=== PATIENT | female | born 1980 | race Caucasian/White ===

== ENCOUNTER 2016-12-12 10:13 | Emergency (ER) | payer SELFPAY ==
[~2016-12-12] VITALS: Ht 163.8 cm; Wt 67.0 kg
[2016-12-12 10:16] VITALS: BP 94/71; PULSE 85; RESP 15; TEMP 98.2; O2SAT 98
[2016-12-12 10:29] VITALS: BP 108/69; PULSE 90; RESP 20; TEMP 97.5; O2SAT 98
[2016-12-12] MEDS ORDERED: SODIUM CHLOR 0.9% 1000 ML INJ 1,000 ML IV SCH (10:35)
[2016-12-12] MEDS ORDERED: POLYETHYLENE GLYCOL 17 GM PKG PO ONE (10:45)
[2016-12-12] MEDS ORDERED: ONDANSETRON HCL 4 MG/2 ML VIAL IVP ONE (10:45)
[2016-12-12] MEDS ORDERED: SODIUM CHLORIDE 0.9% FLUSH 5 ML FLUSH IVF PRN (10:45)
[2016-12-12] MEDS ORDERED: GABA100C4 PO (11:49)
[2016-12-12] MEDS ORDERED: VIST50CA PO (11:49)
[2016-12-12] MEDS ORDERED: LISI40TA PO (11:49)
[2016-12-12] MEDS ORDERED: TRAZ100T4 PO (11:49)
[2016-12-12] MEDS ORDERED: STOO100C (11:49)
[2016-12-12] MEDS ORDERED: PROZ40CA PO (11:49)
--- NOTE | 2016-12-12 11:49 | PD ---
HPI Chief Complaint: GI Complaint Time Seen by Provider: 10:30 Travel History International Travel<30 days: No Contact w/Intl Traveler<30days: No Traveled to known affect area: No History of Present Illness HPI Patient is a 36-year-old female who presents to emergency room with complaints of abdominal pain with nausea, vomiting and constipation. Patient reports that she has a remote history of irritable bowel disease, reports that for the past 8 days, she has not been able to have a bowel movement. Patient reports that she has been straining, reports that she has tried taking Dulcolax without any relief of symptoms. Patient reports increased pain throughout her abdomen secondary to her constipation. Patient with no fevers or chills, patient with no other complaints. PFSH Past Medical History Gastrointestinal Disorders: Yes (pancreatitis) ?: Unknown Past Surgical History Surgical History: No Previous Surgery Family History Family History: Negative Social History Alcohol Use: Yes Tobacco Use: No Substance Use: No Allergies-Medications (Allergen,Severity, Reaction): Coded Allergies: Biaxin (Verified Allergy, Mild, RASH, 12/12/16) Ceftin (Verified Allergy, Mild, RASH, 12/12/16) Reported Meds & Prescriptions Reported Meds & Active Scripts Active Miralax Powder (Polyethylene Glycol 3350 Powder) 17 Gm Powd 17 Gm PO DAILY Mix and dissolve one measuring cap-ful (17 grams) in water or juice. Reported Trazodone (Trazodone HCl) 100 Mg Tab 100 Mg PO HS Stool Softener (Docusate Sodium) 100 Mg Cap Lisinopril 40 Mg Tab 0 PO DAILY Prozac (Fluoxetine HCl) 40 Mg Cap 40 Mg PO DAILY Vistaril (Hydroxyzine Pamoate) 50 Mg Cap 100 Mg PO TID PRN Gabapentin 100 Mg Cap 100 Mg PO TID Review of Systems General / Constitutional: No: Fever Eyes: No: Visual changes HENT: No: Headaches Cardiovascular: No: Chest Pain or Discomfort Respiratory: No: Shortness of Breath Gastrointestinal: Positive: Nausea, Abdominal Pain, Constipation Genitourinary: No: Dysuria Musculoskeletal: No: Pain Skin: No Rash Neurologic: No: Weakness Psychiatric: No: Depression Endocrine: No: Polydipsia Hematologic/Lymphatic: No: Easy Bruising Physical Exam Narrative GENERAL: No acute distress, nontoxic SKIN: Warm and dry. HEAD: Atraumatic. Normocephalic. EYES: PNo injection or drainage. ENT: No nasal bleeding or discharge. Mucous membranes pink and moist. NECK: Trachea midline. No JVD. CARDIOVASCULAR: Regular rate and rhythm. No murmur appreciated. RESPIRATORY: No accessory muscle use. Clear to auscultation. Breath sounds equal bilaterally. GASTROINTESTINAL: Abdomen soft, diffusely tender with no rebound or guarding on exam.. MUSCULOSKELETAL: No obvious deformities. No clubbing. No cyanosis. No edema. NEUROLOGICAL: Awake and alert. No obvious cranial nerve deficits. Motor grossly within normal limits. Normal speech. PSYCHIATRIC: Appropriate mood and affect; insight and judgment normal. Data Data Last Documented VS Vital Signs Date Time Temp Pulse Resp B/P Pulse Ox O2 Delivery O2 Flow Rate FiO2 12/12/16 14:57 64 18 108/75 98 Room Air 12/12/16 10:29 97.5 Orders Complete Blood Count With Diff (12/12/16 10:35) Comprehensive Metabolic Panel (12/12/16 10:35) Lipase (12/12/16 10:35) Prothrombin Time / Inr (Pt) (12/12/16 10:35) Act Partial Throm Time (Ptt) (12/12/16 10:35) Urinalysis - C+S If Indicated (12/12/16 10:35) Ct Abd/Pel W/O Iv Contrast (12/12/16 10:35) Iv Access Insert/Monitor (12/12/16 10:35) Ondansetron Inj (Zofran Inj) (12/12/16 10:45) Sodium Chlor 0.9% 1000 Ml Inj (Ns 1000 M (12/12/16 10:35) Sodium Chloride 0.9% Flush (Ns Flush) (12/12/16 10:45) Ed Urine Pregnancytest Poc (12/12/16 10:35) Polyethylene Glycol (Miralax) (12/12/16 10:45) Labs Laboratory Tests Test 12/12/16 12/12/16 11:05 11:20 Urine Color LIGHT-YELLOW Urine Turbidity HAZY Urine pH 5.0 Urine Specific [place] 1.014 Urine Protein NEG mg/dL Urine Glucose (UA) NEG mg/dL Urine Ketones NEG mg/dL Urine Occult Blood NEG Urine Nitrite NEG Urine Bilirubin NEG Urine Urobilinogen LESS THAN 2.0 MG/DL Urine Leukocyte Esterase SMALL Urine RBC 1 /hpf Urine WBC 1 /hpf Urine Squamous Epithelial 4 /hpf Cells Urine Calcium Oxalate Crystals OCC /hpf Urine Bacteria OCC /hpf Microscopic Urinalysis Comment CULT NOT INDICATED White Blood Count 7.8 TH/MM3 Red Blood Count 4.13 MIL/MM3 Hemoglobin 12.3 GM/DL Hematocrit 35.1 % Mean Corpuscular Volume 84.9 FL Mean Corpuscular Hemoglobin 29.9 PG Mean Corpuscular Hemoglobin 35.2 % Concent Red Cell Distribution Width 12.6 % Platelet Count 298 TH/MM3 Mean Platelet Volume 7.4 FL Neutrophils (%) (Auto) 48.7 % Lymphocytes (%) (Auto) 42.1 % Monocytes (%) (Auto) 6.1 % Eosinophils (%) (Auto) 2.4 % Basophils (%) (Auto) 0.7 % Neutrophils # (Auto) 3.8 TH/MM3 Lymphocytes # (Auto) 3.3 TH/MM3 Monocytes # (Auto) 0.5 TH/MM3 Eosinophils # (Auto) 0.2 TH/MM3 Basophils # (Auto) 0.1 TH/MM3 CBC Comment DIFF FINAL Differential Comment Prothrombin Time 10.1 SEC Prothromb Time International 0.9 RATIO Ratio Activated Partial 21.0 SEC Thromboplast Time Sodium Level 139 MEQ/L Potassium Level 4.2 MEQ/L Chloride Level 104 MEQ/L Carbon Dioxide Level 25.1 MEQ/L Anion Gap 10 MEQ/L Blood Urea Nitrogen 19 MG/DL Creatinine 0.70 MG/DL Estimat Glomerular Filtration 95 ML/MIN Rate Random Glucose 90 MG/DL Calcium Level 9.2 MG/DL Total Bilirubin 0.3 MG/DL Aspartate Amino Transf 29 U/L (AST/SGOT) Alanine Aminotransferase 35 U/L (ALT/SGPT) Alkaline Phosphatase 60 U/L Total Protein 7.5 GM/DL Albumin 4.2 GM/DL Lipase 77 U/L [facility] Medical Decision Making Medical Screen Exam Complete: Yes Emergency Medical Condition: Yes Interpretation(s) Vital Signs Date Time Temp Pulse Resp B/P Pulse Ox O2 Delivery O2 Flow Rate FiO2 12/12/16 10:29 97.5 90 20 108/69 98 12/12/16 10:16 98.2 85 15 94/71 98 Differential Diagnosis Small bowel obstruction, constipation, electrolyte abnormality, UTI Narrative Course Patient is a 36-year-old female who presents to emergency room with complaints of abdominal pain with nausea vomiting and constipation. Patient reports that she has been very constipated and has not been able to have a bowel movement for the past 8 days. Patient reports that she feels full in her abdomen and "everything hurts her" because she feels full of stool. Patient discharged taking [id number] ducal ex without any resolution of symptoms. Patient with no fevers or chills at this time. Patient reports that she has history of chronic pancreatitis secondary to alcohol abuse, patient denies pain to her upper abdomen today. An IV line was established patient, patient was given IV fluids as well as antinausea medications. CT of abdomen and pelvis ordered for further evaluation symptoms. All labs and all studies reviewed patient in detail. Patient reports feeling much better in the emergency room. Patient will follow-up with primary care doctor as well as GI. sings and symptoms of when to return to the emergency room was reviewed patient in detail. Diagnosis Primary Impression: Abdominal pain Qualified Code: R10.84 - Generalized abdominal pain Additional Impression: Constipation Qualified Code: K59.00 - Constipation, unspecified constipation type Patient Instructions: General Instructions Additional Instructions: Please follow-up with your primary care doctor Please follow-up with your GI doctor Return to ER as needed Return to ER if symptoms progress or worsen Med/Other Pt SpecificInfo: Prescription(s) given Scripts Polyethylene Glycol 3350 Powder (Miralax Powder)17 Gm Powd17 Gm PO DAILY #1 BOTTLE Ref 0 Mix and dissolve one measuring cap-ful (17 grams) in water or juice. Prov:Emily Menchaca DO 12/12/16 Disposition: 01 DISCHARGE HOME Condition: Stable Emily Mecnhaca DO Dec 12, 2016 11:49
[2016-12-12 12:02] LABS: BACTERIA, URINE OCC /hpf; BLOOD, URINE NEG (NEG); CALCIUM OXALATE CRYSTALS,URINE OCC /hpf; GLUCOSE,URINE NEG (NEG); KETONE, URINE NEG (NEG); NITRITE,URINE NEG (NEG); SQUAMOUS EPITHELIAL CELL URINE 4 /hpf (0-5); URINE COLOR LIGHT-YELLOW (YELLW/STRAW)
[2016-12-12 12:04] LABS: COMMENT (UR) CULT NOT INDICATED; CULTURE IF INDICATED CULT NOT INDICATED
[2016-12-12 12:10] LABS: AUTOMATED NEUTROPHIL # 3.8 TH/MM3 (1.8-7.7); BASOPHIL # 0.1 TH/MM3 (0-0.2); BASOPHIL % 0.7 % (0.0-2.0); EOSINOPHIL # 0.2 TH/MM3 (0-0.4); EOSINOPHIL % 2.4 % (0.0-4.0); HEMATOCRIT 35.1 % (35.0-46.0); HEMO FLAGS DIFF FINAL; LYMPH % 42.1 % (9.0-44.0); LYMPHOCYTE # 3.3 TH/MM3 (1.0-4.8); MEAN CELL VOLUME 84.9 FL (80.0-100.0); MEAN CORPUSCULAR HEMOGLOBIN 29.9 PG (27.0-34.0); MEAN CORPUSCULAR HGB CONC 35.2 % (32.0-36.0); MONO % 6.1 % (0.0-8.0); NEUT % 48.7 % (16.0-70.0); PLATELET COUNT 298 TH/MM3 (150-450); RED BLOOD COUNT 4.13 MIL/MM3 (4.00-5.30); RED CELL DISTRIBUTION WIDTH 12.6 % (11.6-17.2); WHITE BLOOD COUNT 7.8 TH/MM3 (4.0-11.0)
[2016-12-12 12:27] LABS: INTERNATIONAL NORMALIZED RATIO 0.9 RATIO; PROTHROMBIN TIME - PATIENT 10.1 SEC (9.8-11.6)
[2016-12-12 12:46] LABS: ALKALINE PHOSPHATASE 60 U/L (45-117); TOTAL BILIRUBIN ADULT 0.3 MG/DL (0.2-1.0)
[2016-12-12 13:06] LABS: ALT (GPT) 35 U/L (10-53); ANION GAP 10 MEQ/L (5-15); AST (GOT) 29 U/L (15-37); BICARBONATE 25.1 MEQ/L (21.0-32.0); BLOOD UREA NITROGEN 19 MG/DL (7-18); CHLORIDE 104 MEQ/L (98-107); GLOMERULAR FILTRATION RATE 95 ML/MIN (>89); SODIUM (NA) 139 MEQ/L (136-145)
[2016-12-12 13:07] LABS: POTASSIUM 4.2 MEQ/L (3.5-5.1)
--- NOTE | 2016-12-12 14:12 | RADRPT ---
EXAM DATE/TIME: 12/12/2016 14:01 [place] COMPARISON: No previous studies available for comparison. INDICATIONS : Diffuse abdomen pain, constipation. ORAL CONTRAST: No oral contrast ingested. RADIATION DOSE: 13.26 CTDIvol (mGy) MEDICAL HISTORY : Pancreatitis. SURGICAL HISTORY : None. ENCOUNTER: Initial ACUITY: 4 - 6 days PAIN SCALE: 5/10 LOCATION: abdomen TECHNIQUE: Volumetric scanning of the abdomen and pelvis was performed. Using automated exposure control and ad justment of the mA and/or kV according to patient size, radiation dose was kept as low as reasonably achievable to obtain optimal diagnostic quality images. FINDINGS: LOWER LUNGS: The visualized lower lungs are clear. LIVER: Homogeneous density without lesion. There is no dilation of the biliary tree. No calcified gallston es. SPLEEN: Normal size without lesion. PANCREAS: Within normal limits. KIDNEYS: Normal in size and shape. There is no mass, stone, or hydronephrosis. ADRENAL GLANDS: Within normal limits. VASCULAR: There is no aortic aneurysm. BOWEL/MESENTERY: The stomach, small bowel, and colon demonstrate no acute abnormality. There is no free intraperitone al air or fluid. Appendix appears normal. ABDOMINAL WALL: Within normal limits. RETROPERITONEUM: There is no lymphadenopathy. BLADDER: No wall thickening or mass. REPRODUCTIVE: Within normal limits. INGUINAL: There is no lymphadenopathy or hernia. MUSCULOSKELETAL: Within normal limits for patient age. CONCLUSION: No acute inflammatory process. Emiliano Polo MD on December 12, 2016 at 14:09 Board Certified Radiologist. This report was verified electronically.
[2016-12-12] MEDS ORDERED: MIRA33504 PO (14:56)
[2016-12-12 14:57] VITALS: BP 108/75; PULSE 64; RESP 18; O2SAT 98
== END 2016-12-12 15:53 | disposition home or self-care (01) ==
LOC: NEPC 10:13
DX: R10.84 Generalized abdominal pain (principal); K59.00 Constipation, unspecified
CPT/HCPCS: 74176; 80053; 81001; 83690; 84703; 85025; 85610; 85730; 96361; 96374; 99284; J2405; J7030

== ENCOUNTER 2017-02-11 08:13 | Emergency (ER) | payer SELFPAY ==
[~2017-02-11] VITALS: Ht 162.6 cm; Wt 68.0 kg
[~2017-02-11 08:13] MED LIST: GABA100C4 PO; LISI40TA PO; MIRA33504 PO; PROZ40CA PO; STOO100C; TRAZ100T4 PO; VIST50CA PO
[2017-02-11 08:15] VITALS: BP 110/80; PULSE 94; RESP 16; TEMP 97.9; O2SAT 98
== END 2017-02-11 09:00 | disposition left against medical advice (07) ==
LOC: NED 08:13
DX: R10.9 Unspecified abdominal pain (principal); Z53.29 Procedure and treatment not carried out because of patient's decision for other reasons
CPT/HCPCS: 99281